=== PATIENT | female | born 1985 | race Caucasian/White ===

== ENCOUNTER → 2021-01-29 08:19 | Outpatient (BNVA) | payer OTHER, SELFPAY | PROVIDERS: Family Provider Nurse Practitioner; PCP Nurse Practitioner; Referring Provider Nurse Practitioner Family; Visit Provider Internal Medicine | DX: E07.9 Disorder of thyroid, unspecified (principal); E04.2 Nontoxic multinodular goiter | CPT/HCPCS: 99203; 99204 ==

== ENCOUNTER 2021-01-29 10:03 | Outpatient (CLI) | payer OTHER, SELFPAY ==
[2021-01-29 11:02] LABS: Thyroid Stimulating Hormone 1.54 uIU/mL (0.27-4.20)
== END 2021-01-29 10:04 | disposition home or self-care (01) ==
PROVIDERS: PCP Nurse Practitioner Family; Visit Provider Internal Medicine
DX: E07.9 Disorder of thyroid, unspecified (principal)
CPT/HCPCS: 84443

== ENCOUNTER 2021-04-23 08:15 | Outpatient (CLI) | payer OTHER, SELFPAY ==
--- NOTE | 2021-04-23 08:45 | US_ITS ---
WS: [id number] INDICATION: Thyroid nodule TECHNIQUE: Ultrasound-guided FNA FINDINGS: Outside imaging or views November 15, 2020. Dominant right nodule along the right isthmus was s elected. The procedure including risks, benefits, and complications were discussed with the patient w ho agreed to proceed. Timeout was performed. Using sterile technique patient was prepped and draped i n usual sterile fashion. After 1% lidocaine, using ultrasound guidance, 3 passes were made into the r ight isthmus nodule with active aspiration and 25-gauge sampling needles. No immediate complications. Pathology was present for slide preparation. US/US biopsy/FNA thyroid [id number] IMPRESSION: Uncomplicated ultrasound-guided FNA of the right isthmus nodule
== END 2021-04-23 08:16 | disposition home or self-care (01) ==
PROVIDERS: Visit Provider Internal Medicine
DX: E04.1 Nontoxic single thyroid nodule (principal)
CPT/HCPCS: 10005; 88173; 88305